=== PATIENT | female | born 1935 | race Caucasian/White ===

== ENCOUNTER 2016-07-06 10:55 | Inpatient (IN) | payer MEDICARE, BC ==
[~2016-07-06] VITALS: Ht 167.6 cm; Wt 86.2 kg
[~2016-07-06 10:55] MED LIST: ACET-868 PO; AMIO200T PO; ASPI81TA2 PO; ATOR20TA PO; CYAN100096 IM; FERR325T28 PO; FURO40SO2 PO; LEVO100T9 PO; METO2.5T2 PO; METO25TA3 PO; POTA20PA4 PO
[2016-07-06] MEDS ORDERED: HYDROCODONE/APAP 5/325MG 1 EACH TABLET ONE (10:58)
[2016-07-06] MEDS ORDERED: ONDANSETRON 4 MG TAB.RAPDIS ONE (10:59)
[2016-07-06] MEDS ORDERED: HYDROCODONE/APAP 5/325MG 1 EACH TABLET PO ONE (11:00)
[2016-07-06] MEDS ORDERED: ONDANSETRON 4 MG TAB.RAPDIS SL ONE (11:00)
--- NOTE | 2016-07-06 11:00 | NUR ---
PT MEDICATED ORDERED.
--- NOTE | 2016-07-06 11:00 | NUR ---
PT BIBA FOR LEFT KNEE PAIN. HX OF KNEE REPLACEMENT. NAD NOTED. DENIES INJURY. SEEN BY MD FOR EVAL. SAFETY AND COMFORT MEASURES PROVIDED. VSS. WILL MONITOR.
--- NOTE | 2016-07-06 11:05 | NUR ---
PT TAKEN TO CT.
--- NOTE | 2016-07-06 12:28 | NUR ---
CALLED JAMIE SPOKE TO WILLA, REQUESTED TRANSPORTATION GOING TO [facility] ETA [id number]
--- NOTE | 2016-07-06 12:38 | NUR ---
SPOKE WITH PROCUREMENT COORDINATOR AT BEDSIDE, PATIENT RESIDES AT THE [facility] [place].
--- NOTE | 2016-07-06 13:11 | NUR ---
REPORT GIVEN TO [facility] FOR TRANSFER BACK TO NURSING FACILITY.
--- NOTE | 2016-07-06 13:14 | NUR ---
Patient discharged to home in stable condition. Written and verbal after care instructions given. Patient verbalizes understanding of instruction.
--- NOTE | 2016-07-06 13:28 | NUR ---
CALLED DR COUCH'S OFFICE LEFT VOICEMAIL TO CALL BACK.
[2016-07-06] MEDS ORDERED: ASPIRIN 325 MG TABLET PO ONE (13:30)
[2016-07-06] MEDS ORDERED: ASPIRIN 325 MG TABLET ONE (13:32)
--- NOTE | 2016-07-06 13:49 | NUR ---
DR CIFUENTES ON THE PHONE WITH DR COUCH
[2016-07-06 13:52] LABS: BASOPHILS # (AUTO) 0.1 /CMM (0.0-0.2); BASOPHILS % (AUTO) 0.9 % (0.0-2.0); EOSINOPHILS # (AUTO) 0.3 /CMM (0.0-0.7); EOSINOPHILS % (AUTO) 3.9 % (0.0-6.0); HEMATOCRIT 39 % (33-45); HEMOGLOBIN 13.5 g/dL (11.5-14.8); LYMPHOCYTES # (AUTO) 1.7 /CMM (0.8-4.8); LYMPHOCYTES % (AUTO) 24.2 % (20.0-44.0); MEAN CORPUSCULAR HEMOGLOBIN 34 PG (26.0-33.0); MEAN CORPUSCULAR HGB CONC 34 g/dl (31.0-36.0); MEAN CORPUSCULAR VOLUME 99 fL (82-100); MONOCYTES # (AUTO) 0.6 /CMM (0.1-1.30); NEUTROPHILS # (AUTO) 4.2 /CMM (1.8-8.9); PLATELET COUNT (AUTO) 105 /CMM (150-450); RDW COEFFICIENT OF VARIATION 12.8 (11.5-15.0); RED BLOOD CELL COUNT(AUTO) 3.98 MIL/uL (4.0-5.2); WHITE BLOOD COUNT (AUTO) 6.9 K/uL (4.3-11.0)
[2016-07-06 14:03] LABS: CALCIUM, SERUM 8.1 mg/dL (8.5-10.1); CREATININE 1.1 mg/dL (0.6-1.3); POTASSIUM 3.5 mmol/L (3.5-5.1)
[2016-07-06 14:06] LABS: INR 1.1 (0.87-1.13); PROTHROMBIN TIME 11.5 SECS (9.5-12.7)
[2016-07-06 14:10] LABS: TROPONIN I 0.022 ng/mL (0.00-0.056)
--- NOTE | 2016-07-06 14:20 | NUR ---
PATIENT ASSIGNED TO TELE 311-2
--- NOTE | 2016-07-06 14:42 | NUR ---
REPORT GIVEN TO KATHIE OLMOS TELE ROOM 311-1
[2016-07-06] MEDS ORDERED: DIVA125C5 PO (14:55)
[2016-07-06] MEDS ORDERED: DOCU-170 PO (14:55)
[2016-07-06] MEDS ORDERED: ALPR0.5T8 PO (14:55)
[2016-07-06] MEDS ORDERED: FURO40TA5 PO (14:55)
[2016-07-06] MEDS ORDERED: HYPR15DR4 EACHEYE (14:55)
[2016-07-06] MEDS ORDERED: CITA40TA22 PO (14:55)
[2016-07-06] MEDS ORDERED: AMIO200T2 PO (14:55)
[2016-07-06] MEDS ORDERED: LISI2.5T2 PO (14:58)
[2016-07-06] MEDS ORDERED: IBUP200C5 PO (15:01)
[2016-07-06] MEDS ORDERED: TRAZ-147 PO (15:01)
[2016-07-06] MEDS ORDERED: ZOLP10TA6 PO (15:01)
[2016-07-06] MEDS ORDERED: GABA-532 PO (15:01)
[2016-07-06] MEDS ORDERED: VIT1CAPS9 PO (15:01)
--- NOTE | 2016-07-06 15:10 | NUR ---
RN NOTES RECEIVED PT FROM ER. TRANSPORTED VIA GURNEY, ACCOMPANIED BUY 1 RN AND 1TECH. CAREGIVER AT BEDSIDE. PT WITH INITIAL VS T- 98.7 BP- 110/85 P- 78 R- 18 O2 SAT- 93% IN ROOM AIR. PT ALERT, ORIENTED. IN NO DISTRESS. PT ADMITTED UNDER TELEMETRY SERVICES, UNDER DR COUCH. ADMITTED FOR LEFT KNEE PAIN AND CHEST PAIN. SKIN AND BODY ASSESSMENT DONE. PT REFUSED PHOTOS TO BE TAKEN; SAID SHE IS IN PAIN. WILL TRY AGAIN LATER. WILL CONTINUE TO MONITOR
[2016-07-06] MEDS ORDERED: ONDANSETRON HCL/PF 4 MG/2 ML VIAL IV PRN (15:30)
[2016-07-06] MEDS ORDERED: ACETAMINOPHEN 325 MG TABLET PO PRN ×2 (15:30→17:30)
[2016-07-06] MEDS ORDERED: FERR-58 PO (15:59)
[2016-07-06 16:00] VITALS: BP 124/59
[2016-07-06] MEDS ORDERED: ZOLPIDEM TARTRATE 5 MG TABLET PO PRN (17:30)
[2016-07-06] MEDS ORDERED: ASPIRIN 81 MG TAB.CHEW PO SCH (17:30)
[2016-07-06] MEDS ORDERED: AMIODARONE HCL 200 MG TABLET PO SCH (17:57)
[2016-07-06] MEDS: NITROGLYCERIN PACKET 1 GM PACKET TOP SCH (18:00)
--- NOTE | 2016-07-06 18:00 | NUR ---
RN NOTES PT IN BED. AWAKE, ALERT, ORIENTED X 3. IN NO APPARENT DISTRESS. TALKING WITH CAREGIVER AND VISITOR. PRN PAIN MEDS ADMINISTERED. REFUSED TO HAVE PHOTOS TAKEN. WILL ENDORSE TO ONCOMING SHIFT
[2016-07-06] MEDS: HYDROCODONE/APAP 5/325MG 1 EACH TABLET PO PRN (18:11)
[2016-07-06] MEDS: ALPRAZOLAM 0.5 MG TABLET PO SCH (18:11)
[2016-07-06] MEDS: POTASSIUM CHLORIDE 20 MEQ POWDER PACKET PO SCH (18:11)
[2016-07-06] MEDS: DOCUSATE SODIUM 100 MG CAPSULE PO SCH (18:11)
[2016-07-06] MEDS ORDERED: IBUPROFEN 200 MG TABLET PO PRN (18:30)
[2016-07-06] MEDS: POLYVINYL ALCOHOL 15 ML BOTTLE OP SCH (18:44)
--- NOTE | 2016-07-06 19:45 | NUR ---
TELE/BALANCING MACHINE OPERATOR; RECEIVED PT. IN BED AWAKE, ALERT AND ORIENTED. VERBALLY RESPONSIVE. BREATHING NON LABORED. DAUGHTER AND PT. OWN OCCUPATIONAL HEALTH PHYSICIAN AT THE BEDSIDE BED ON LOWER POSITION AND LOCKED FOR SAFETY. SIDES RAILS ARE UP FOR SAFETY. CALL LIGHT WITHIN REACH. CONTINUE TO MONITOR. WITH PACEMAKER ON LCW. BOTH LOWER LEGS ARE SWOLLEN AND WITH DISCOLORATION. HL ON RT HAND INTACT. ON TELEMETRY.
[2016-07-06 20:00] VITALS: BP 144/76
[2016-07-06] MEDS: DIVALPROEX SODIUM 125 MG CAP.SPRINK PO SCH (21:08)
[2016-07-06] MEDS: TRAZODONE 50 MG TABLET PO SCH (21:47)
[2016-07-06] MEDS: ATORVASTATIN 10 MG TABLET PO SCH (21:48)
[2016-07-06] MEDS: GABAPENTIN 100 MG CAPSULE PO SCH (21:49)
--- NOTE | 2016-07-06 23:10 | NUR ---
TELE/RESIDENTIAL PROGRAM WORKER; PT CALLED AND ASKED FOR SLEEPING PILL. AMBIEN 10 MG 1 TAB. PO HS PRN GIVEN ORDERED. WILL CONTINUE TO MONITOR.
[2016-07-06] MEDS: ZOLPIDEM TARTRATE 10 MG TABLET PO PRN (23:12)
[2016-07-07] VITALS: BP 108/61
[2016-07-07] MEDS: NITROGLYCERIN PACKET 1 GM PACKET TOP SCH ×4 (00:54→18:00)
--- NOTE | 2016-07-07 02:00 | NUR ---
TELE/BUS DRIVER; SLEEPING AT THIS TIME. BREATHING NON LABORED.
[2016-07-07] MEDS: HYDROCODONE/APAP 5/325MG 1 EACH TABLET PO PRN ×3 (03:25→15:05)
--- NOTE | 2016-07-07 03:25 | NUR ---
TEL/DIRECTOR LEARNING AND DEVELOPMENT; PT. C/O PAIN LT LEG WITH PAIN LEVEL OF 7 / 10/ BP CHECKED 120/ 76, P 85. NORCO 5-325 MG 1 TAB. PO Q4 PRN GIVEN ORDERED.
[2016-07-07 04:00] VITALS: BP 120/76
[2016-07-07] MEDS: DIVALPROEX SODIUM 125 MG CAP.SPRINK PO SCH ×3 (04:54→21:08)
[2016-07-07 06:26] LABS: BASOPHILS % (AUTO) 0.3 % (0.0-2.0); EOSINOPHILS # (AUTO) 0.3 /CMM (0.0-0.7); EOSINOPHILS % (AUTO) 2.9 % (0.0-6.0); HEMATOCRIT 42 % (33-45); LYMPHOCYTES # (AUTO) 2.2 /CMM (0.8-4.8); LYMPHOCYTES % (AUTO) 22.3 % (20.0-44.0); MEAN CORPUSCULAR HEMOGLOBIN 33 PG (26.0-33.0); MEAN CORPUSCULAR HGB CONC 33 g/dl (31.0-36.0); MEAN CORPUSCULAR VOLUME 99 fL (82-100); MONOCYTES # (AUTO) 0.5 /CMM (0.1-1.30); MONOCYTES % (AUTO) 5.3 % (2.0-12.0); NEUTROPHILS % (AUTO) 69.2 % (43.0-81.0); PLATELET COUNT (AUTO) 116 /CMM (150-450); RDW COEFFICIENT OF VARIATION 13.7 (11.5-15.0); RED BLOOD CELL COUNT(AUTO) 4.26 MIL/uL (4.0-5.2); WHITE BLOOD COUNT (AUTO) 10.1 K/uL (4.3-11.0)
--- NOTE | 2016-07-07 06:38 | NUR ---
TELE/PRIME MINISTER; PT ON A-FIB, V PACING 72. SLEPT FAIRLY. BREATHING NON LABORED. PT ALSO HAS REDNESS LT THIGH, RT HIP, BACK,LT HIP LT THIGH.
--- NOTE | 2016-07-07 06:41 | NUR ---
TELE/VAT PACKER; NO PAIN AT THIS TIME. CONTINUE TO MONITOR. CALL LIGHT WITHIN REACH. WILL ENDORSE TO THE DAY SHIFT NURSE.
[2016-07-07 06:49] LABS: CALCIUM, SERUM 8.4 mg/dL (8.5-10.1); CREATININE 1.4 mg/dL (0.6-1.3); POTASSIUM 3.6 mmol/L (3.5-5.1)
--- NOTE | 2016-07-07 07:30 | NUR ---
TERRAZZO TILE MAKER NOTES PT IN BED, AWAKE, ALERT AND ORIENTED, DENIES PAIN, NOT IN DISTRESS, CALL LIGHT WITHIN REACH, KEPT WARM AND COMFORTABLE IN BED, ISOLATION PRECAUTIONS OBSERVED.
[2016-07-07 08:00] VITALS: BP 110/65
[2016-07-07] MEDS: FERROUS SULFATE (325 MG) 325 MG/TAB TABLET PO SCH (08:54)
[2016-07-07] MEDS: ALPRAZOLAM 0.5 MG TABLET PO SCH ×3 (08:54→17:39)
[2016-07-07] MEDS: DOCUSATE SODIUM 100 MG CAPSULE PO SCH ×2 (08:55→17:39)
[2016-07-07] MEDS: PANTOPRAZOLE 40 MG TABLET.DR PO SCH (08:56)
[2016-07-07] MEDS: ASPIRIN 81 MG TAB.CHEW PO SCH (08:56)
[2016-07-07] MEDS: CITALOPRAM HYDROBROMIDE 20 MG TABLET PO SCH (08:56)
[2016-07-07] MEDS: LEVOTHYROXINE SODIUM 100 MCG TABLET PO SCH (08:56)
[2016-07-07] MEDS: POLYVINYL ALCOHOL 15 ML BOTTLE OP SCH (08:57)
[2016-07-07] MEDS: METOPROLOL SUCCINATE 25 MG TAB.SR.24H PO SCH (09:00)
[2016-07-07] MEDS: FUROSEMIDE 40 MG TABLET PO SCH (09:00)
[2016-07-07] MEDS: LISINOPRIL (5MG) 5 MG TABLET PO SCH (09:00)
[2016-07-07] MEDS ORDERED: AMIODARONE HCL 200 MG TABLET PO SCH (09:00)
[2016-07-07] MEDS: MULTIVITAMINS W-MINERALS 1 TAB TABLET PO SCH (09:09)
--- NOTE | 2016-07-07 13:00 | NUR ---
DEVELOPMENT PLANNER NOTES PT IN BED, AWAKE, ALERT AND ORIENTED, PAIN MEDICATION GIVEN FOR PAIN MANAGEMENT, NOT IN DISTRESS, ASSISTED WITH MEALS AND ADL'S, TOLERATING CURRENT DIET WELL, CALL LIGHT WITHIN REACH, ASSISTED WITH TURNING AND REPOSITIONING Q2 HRS.
--- NOTE | 2016-07-07 13:00 | NUR ---
WIRE SPINNER NOTES PT SEEN BY DR. COUCH, PLAN OF CARE DISCUSSED WITH PT, VERBALIZED UNDERSTANDING, INFORMED OF ABNORMAL LAB RESULTS, NO NEW ORDERS GIVEN.
[2016-07-07 16:00] VITALS: BP 114/62
[2016-07-07] MEDS: POTASSIUM CHLORIDE 20 MEQ POWDER PACKET PO SCH (17:47)
[2016-07-07] MEDS: TRAZODONE 50 MG TABLET PO SCH (17:48)
--- NOTE | 2016-07-07 18:22 | NUR ---
RN NOTES PT IN BED, AWAKE, ALERT AND ORIENTED X3, REPORTS L KNEE/L THIGH/L ARM HAS DECREASED FROM 7 TO 4/10, CALL LIGHT WITHIN REACH, KEPT WARM AND COMFORTABLE IN BED, ISOLATION PRECAUTIONS OBSERVED. PT TOLERATING CURRENT DIET. PM CARE PROVIDED. TURNED AND REPOSITIONED Q2HR. WILL ENDORSE TO INFORMATION SERVICES VICE PRESIDENT NURSE.
--- NOTE | 2016-07-07 19:30 | NUR ---
MS/PIERCING SPECIALIST; RECEIVED PT. IN BED AWAKE, ALERT AND ORIENTED. BREATHING NON LABORED. DENIES PAIN AT THIS TIME. HL ON RA INTACT AND PATENT. ON CONTACT ISOLATION OBSERVED. BED ON LOWER POSITION AND LOCKED FOR SAFETY. SIDE RAILS ARE UP FOR SAFETY. CONTINUE TO MONITOR. CALL LIGHT WITHIN REACH.
[2016-07-07 20:11] VITALS: BP 98/50
[2016-07-07] MEDS: GABAPENTIN 100 MG CAPSULE PO SCH (22:18)
[2016-07-07] MEDS: ATORVASTATIN 10 MG TABLET PO SCH (22:18)
[2016-07-07 22:30] VITALS: BP 123/65
--- NOTE | 2016-07-07 22:30 | NUR ---
MS/STORAGE MANAGER; PT WANTS SLEEPING PILL. BP 123/ 65, P 71.
[2016-07-07] MEDS: ZOLPIDEM TARTRATE 10 MG TABLET PO PRN (22:39)
--- NOTE | 2016-07-07 22:40 | NUR ---
MS/CURATOR OF MANUSCRIPTS; AMBIEN 10 MG PO HS PRN GIVEN ORDERED. WET OF URINE PERINEAL CARE DONE AND DIAPER CHANGED.
[2016-07-08 00:23] VITALS: BP 108/71
[2016-07-08] MEDS: DIVALPROEX SODIUM 125 MG CAP.SPRINK PO SCH ×3 (05:08→21:26)
[2016-07-08] MEDS: NITROGLYCERIN PACKET 1 GM PACKET TOP SCH ×4 (06:24→17:06)
--- NOTE | 2016-07-08 06:55 | NUR ---
MS/POLICY ADVISOR; SLEPT AT GOOD INTERVALS. BREATHING NON LABORED. CONTINUE TO MONITOR. WILL ENDORSE TO THE DAY SHIFT NURSE.
[2016-07-08 08:00] VITALS: BP 112/57
--- NOTE | 2016-07-08 08:23 | NUR ---
WOUND CARE CONSULT: PATIENT SEEN AND SKIN ASSESSMENT DONE. PATIENT ALERT, INCONTINENT, JOSE CRUZ 14, PATIENT NEEDS ASSIST IN TURNING AND REPOSITIONING, NURSING STAFF ORDERED NILS ISOFLEX EVERT BED AND WILL BE PLACED WHEN AVAILABLE IN THE UNIT. SEE TODAY'S SKIN ASSESSMENT IN PCS ALONG WITH RECOMMENDATIONS DISCUSSED WITH NURSING STAFF INCLUDING SKIN/MOISTURE PROTECTION WITH Z GUARD AND PRESSURE PREVENTION MEASURES ORDERED. MD IN AGREEMENT WITH PLAN OF CARE. Addendum: 07/08/16 at 0826 by BILLY BELLO WNDNU Amended: Links added.
[2016-07-08] MEDS: ASPIRIN 81 MG TAB.CHEW PO SCH (08:25)
[2016-07-08] MEDS: PANTOPRAZOLE 40 MG TABLET.DR PO SCH (08:25)
[2016-07-08] MEDS: FUROSEMIDE 40 MG TABLET PO SCH (08:25)
[2016-07-08] MEDS: FERROUS SULFATE (325 MG) 325 MG/TAB TABLET PO SCH (08:25)
[2016-07-08] MEDS: MULTIVITAMINS W-MINERALS 1 TAB TABLET PO SCH (08:26)
[2016-07-08] MEDS: METOPROLOL SUCCINATE 25 MG TAB.SR.24H PO SCH (08:26)
[2016-07-08] MEDS: LEVOTHYROXINE SODIUM 100 MCG TABLET PO SCH (08:26)
[2016-07-08] MEDS: ALPRAZOLAM 0.5 MG TABLET PO SCH ×3 (08:27→17:05)
[2016-07-08] MEDS: CITALOPRAM HYDROBROMIDE 20 MG TABLET PO SCH (08:27)
[2016-07-08] MEDS: DOCUSATE SODIUM 100 MG CAPSULE PO SCH ×2 (08:27→17:05)
[2016-07-08] MEDS: LISINOPRIL (5MG) 5 MG TABLET PO SCH (08:27)
[2016-07-08] MEDS: POLYVINYL ALCOHOL 15 ML BOTTLE OP SCH (08:29)
[2016-07-08] MEDS ORDERED: Z GUARD REMEDY 2 OZ OINT TP PRN (08:30)
[2016-07-08 10:00] VITALS: BP 112/57
--- NOTE | 2016-07-08 10:45 | NUR ---
m/s manager internal: notes report given to naresh (chad) for continuity of care.
--- NOTE | 2016-07-08 11:00 | NUR ---
MS RN NOTES RECEIVED PATIENT IN BED RESTING NO SOB OR ACUTE DISTRESS NOTED. CAREGIVER AT BEDSIDE. BED IN LOW LOCKED POSITION. CALL LIGHT WITHIN REACH WILL CONTINUE TO MONITOR.
[2016-07-08] MEDS: Z GUARD REMEDY 2 OZ OINT TP SCH ×2 (11:21→17:11)
[2016-07-08] MEDS: HYDROCODONE/APAP 5/325MG 1 EACH TABLET PO PRN (14:31)
[2016-07-08 16:00] VITALS: BP 94/57
[2016-07-08] MEDS: POTASSIUM CHLORIDE 20 MEQ POWDER PACKET PO SCH (17:05)
[2016-07-08] MEDS: TRAZODONE 50 MG TABLET PO SCH (17:05)
--- NOTE | 2016-07-08 18:10 | NUR ---
MS RN NOTES PATIENT IN BED RESTING NO SOB OR ACUTE DISTRESS NOTED. ALL DUE MEDICATIONS GIVEN. ALL NEEDS MET. IV INTACT PATENT ON RIGHT HAND. WILL ENDORSE TO PM SHIFT.
--- NOTE | 2016-07-08 19:35 | NUR ---
MS/RN OPENING NOTES PT AWAKE, CAREGIVER AND FAMILY AT BEDSIDE. ON ROOM AIR, NO SOB OR DISTRESS NOTED. A/OX3. BREATHING EVEN AND UNLABORED. IV TO RIGHT HAND PATENT AND INTACT. DENIES PAIN. BED IN LOW/LOCKED POSITION, CALL LIGHT IN REACH. BED RAILS UPX2. WILL CONTINUE TO MONITOR
[2016-07-08 20:00] VITALS: BP 112/59
[2016-07-08] MEDS: GABAPENTIN 100 MG CAPSULE PO SCH (21:26)
[2016-07-08] MEDS: ATORVASTATIN 10 MG TABLET PO SCH (21:26)
--- NOTE | 2016-07-08 22:26 | NUR ---
MS/RN NOTES PT COMPLAINING OF ACHING CHEST PAIN 8/10 RADIATING TO LEFT ARM. ALSO COMPLAINING OF SOME SOB. PUT HER ON O2 AND TELE MONITOR, SHOWS A.FIB. WITH HEART RATE AT 74. PAGED DR. COUCH FOR ORDERS.
--- NOTE | 2016-07-08 22:55 | NUR ---
MS/RN NOTES PT NOTES PAIN TO BE 6/10 NOW. IZA CALLED AND GAVE VERBAL ORDERS TO DRAW TROPONIN NOW AND AGAIN IN THE MORNING. IF TROPONIN IS ABNORMAL, CALL DR. CAMPBELL FOR FURTHER ORDERS. WILL CARRY OUT
[2016-07-09] VITALS: BP 115/65
[2016-07-09] MEDS: ZOLPIDEM TARTRATE 10 MG TABLET PO PRN ×2 (00:29→21:20)
[2016-07-09 04:00] VITALS: BP 129/52
[2016-07-09] MEDS: DIVALPROEX SODIUM 125 MG CAP.SPRINK PO SCH ×3 (05:31→21:19)
[2016-07-09] MEDS: NITROGLYCERIN PACKET 1 GM PACKET TOP SCH ×4 (06:27→17:31)
--- NOTE | 2016-07-09 07:06 | NUR ---
MS/RN CLOSING NOTES PT ASLEEP, EASILY AROUSABLE TO NAME. ON 2LPM O2, NO SOB OR ACUTE DISTRESS NOTED. NO COMPLAINTS OF CHEST PAIN AT THIS TIME. BREATHING EVEN AND UNLABORED. ON TELE MONITOR A.FIB HEART RATE AT 76. TROPONIN LAST NIGHT WAS NEGATIVE. TROPONIN THIS AM PENDING. IV TO RIGHT HAND PATENT AND INTACT. TURNED/REPOSITIONED Q2H OFFLOADED EXTREMITIES. WILL ENDORSE TO AM SHIFT DEDRA.
[2016-07-09 08:00] VITALS: BP_SYST 104; BP_SYST 134; BP_DIAS 49; BP_DIAS 71
--- NOTE | 2016-07-09 08:00 | NUR ---
MS RN NOTES RECEIVED PATIENT IN BED RESTING NO SOB OR ACUTE DISTRESS NOTED. BED IN LOW LOCKED POSITION. CALL LIGHT WITHIN REACH WILL CONTINUE TO MONITOR.
[2016-07-09] MEDS: FERROUS SULFATE (325 MG) 325 MG/TAB TABLET PO SCH (08:02)
[2016-07-09] MEDS: MULTIVITAMINS W-MINERALS 1 TAB TABLET PO SCH (08:03)
[2016-07-09] MEDS: DOCUSATE SODIUM 100 MG CAPSULE PO SCH ×2 (08:03→17:30)
[2016-07-09] MEDS: ALPRAZOLAM 0.5 MG TABLET PO SCH ×3 (08:03→17:30)
[2016-07-09] MEDS: LISINOPRIL (5MG) 5 MG TABLET PO SCH (08:03)
[2016-07-09] MEDS: PANTOPRAZOLE 40 MG TABLET.DR PO SCH (08:03)
[2016-07-09] MEDS: LEVOTHYROXINE SODIUM 100 MCG TABLET PO SCH (08:03)
[2016-07-09] MEDS: FUROSEMIDE 40 MG TABLET PO SCH (08:03)
[2016-07-09] MEDS: ASPIRIN 81 MG TAB.CHEW PO SCH (08:04)
[2016-07-09] MEDS: METOPROLOL SUCCINATE 25 MG TAB.SR.24H PO SCH (08:04)
[2016-07-09] MEDS: CITALOPRAM HYDROBROMIDE 20 MG TABLET PO SCH (08:04)
[2016-07-09] MEDS: POLYVINYL ALCOHOL 15 ML BOTTLE OP SCH (08:05)
[2016-07-09] MEDS: Z GUARD REMEDY 2 OZ OINT TP SCH ×2 (08:05→17:31)
--- NOTE | 2016-07-09 13:00 | NUR ---
MS RN NOTES PATIENT SEEN AND EVALUATED BY DR. COUCH ORDERS NOTED AND CARRIED OUT.
[2016-07-09] MEDS: HYDROCODONE/APAP 5/325MG 1 EACH TABLET PO PRN (15:58)
[2016-07-09 16:00] VITALS: BP 124/71
[2016-07-09] MEDS: POTASSIUM CHLORIDE 20 MEQ POWDER PACKET PO SCH (17:30)
[2016-07-09] MEDS: TRAZODONE 50 MG TABLET PO SCH (17:30)
--- NOTE | 2016-07-09 18:53 | NUR ---
MS RN NOTES PATIENT IN BED RESTING NO SOB OR ACUTE DISTRESS NOTED. ALL DUE MEDICATIONS GIVEN. ALL NEEDS MET. WILL ENDORSE TO PM SHIFT DEDRA.
--- NOTE | 2016-07-09 19:15 | NUR ---
RN NOTES RECEIVED PT AWAKE , HOB ELEVATED, NO SOB, NOT IN DISTRESS WITH O2 INHALATION AT 2LPM VIA NC AND TOLERATED WELL. PT ALERT AND ORIENTED X3, DENIES ANY PAIN AND DISCOMFORT AT THIS TIME. IV ACCESS ON RIGHT HAND PATENT AND INTACT. BOTH LOWER LEG ELEVATED. KEPT BED IN THE LOWEST POSITION, LOCKED, SIDE RAILS X2 UP WITH CALL LIGHT WITHIN REACH. KEPT COMFORTABLE AND ATTENDED. WILL CONTINUE TO MONITOR PT.
[2016-07-09 20:00] VITALS: BP 114/63
[2016-07-09] MEDS: GABAPENTIN 100 MG CAPSULE PO SCH (21:20)
[2016-07-09] MEDS: ATORVASTATIN 10 MG TABLET PO SCH (21:20)
--- NOTE | 2016-07-09 21:20 | NUR ---
RN NOTES PT WANTED TO SLEEP AND HAVING DIFFICULTY SLEEPING AND REQUESTING FOR SLEEPING PILL. AMBIEN 10 MG TAB GIVEN PO AND TOLERATED WELL. WILL CONTINUE TO MONITOR PT.
[2016-07-09 22:00] VITALS: BP 114/63
[2016-07-10] MEDS: DIVALPROEX SODIUM 125 MG CAP.SPRINK PO SCH ×2 (05:20→12:59)
[2016-07-10] MEDS: NITROGLYCERIN PACKET 1 GM PACKET TOP SCH ×3 (05:21→12:59)
--- NOTE | 2016-07-10 06:52 | NUR ---
RN NOTES PT ASLEEP IN BED, NO SOB, NOT IN DISTRESS , TOLERATING O2 INHALATION VIA NC AT 2LPM. VITAL SIGNS STABLE. NO COMPLAIN OF CHEST PAIN, NO EPISODE OF NAUSEA AND VOMITING. ALL DUE MEDS GIVEN. SKIN CARE DONE. TURNED AND REPOSITION Q2H SCHEDULED. NO SIGNIFICANT CHANGE IN CONDITION NOTED.WILL ENDORSE TO MORNING RN FOR CONTINUITY OF CARE.
--- NOTE | 2016-07-10 07:29 | NUR ---
RN OPEN NOTES RECEIVED REPORT FROM INDUSTRIAL YARD BRAKE COUPLER NURSE. PATIENT IS IN BED, EYE CLOSED. EASILY AROUSED TO CALLING HER NAME. NO SIGN AND SYMPTOMS OF DISTRESS. IV SITE IS INTACT AND POTENT. WILL CONTINUE TO ASSESS AND MONITOR PATIENT THROUGH OUT MY SHIFT.
[2016-07-10 08:18] VITALS: BP 111/47
[2016-07-10] MEDS: DOCUSATE SODIUM 100 MG CAPSULE PO SCH (08:21)
[2016-07-10] MEDS: CITALOPRAM HYDROBROMIDE 20 MG TABLET PO SCH (08:21)
[2016-07-10] MEDS: MULTIVITAMINS W-MINERALS 1 TAB TABLET PO SCH (08:21)
[2016-07-10] MEDS: LEVOTHYROXINE SODIUM 100 MCG TABLET PO SCH (08:22)
[2016-07-10] MEDS: ALPRAZOLAM 0.5 MG TABLET PO SCH ×2 (08:23→12:59)
[2016-07-10] MEDS: PANTOPRAZOLE 40 MG TABLET.DR PO SCH (08:23)
[2016-07-10] MEDS: ASPIRIN 81 MG TAB.CHEW PO SCH (08:23)
[2016-07-10] MEDS: FERROUS SULFATE (325 MG) 325 MG/TAB TABLET PO SCH (08:23)
[2016-07-10] MEDS: FUROSEMIDE 40 MG TABLET PO SCH (08:24)
[2016-07-10 08:26] VITALS: BP 126/80
[2016-07-10] MEDS: METOPROLOL SUCCINATE 25 MG TAB.SR.24H PO SCH (08:26)
[2016-07-10] MEDS: LISINOPRIL (5MG) 5 MG TABLET PO SCH (08:26)
[2016-07-10] MEDS: Z GUARD REMEDY 2 OZ OINT TP SCH (08:27)
[2016-07-10] MEDS: POLYVINYL ALCOHOL 15 ML BOTTLE OP SCH (08:32)
[2016-07-10 12:59] VITALS: BP 120/66
[2016-07-10] MEDS: HYDROCODONE/APAP 5/325MG 1 EACH TABLET PO PRN (12:59)
--- NOTE | 2016-07-10 16:44 | NUR ---
STAPLE CUTTER NOTES DISCHARGED ORDER RECEIVED AND CARRY OUT. PATIENT IS STABLE. VITAL SIGNS ARE STABLE. DENIED PAIN. NO SIGNS AND SYMPTOMS OF DISTRESS. PATIENT'S DAUGHTER AT BEDSIDE RECEIVED ALL DISCHARGE PAPER WORKS. AMBULANCE WITH 2 finish photographer TRANSPORTED PATIENT TO [facility]. REPORT WAS GIVEN TO CONNIE. IV SITE REMOVED. ID BAND REMOVED.
== END 2016-07-10 14:45 | DRG 205 ==
LOC: ER 10:58 → TELE 14:30 → MED 07-07 15:04
PROVIDERS: ADMIT Legal Medicine; ATTEND Legal Medicine
DX: M94.0 Chondrocostal junction syndrome [Tietze] (principal); N17.0 Acute kidney failure with tubular necrosis; I48.92 Unspecified atrial flutter; I50.32 Chronic diastolic (congestive) heart failure; I13.0 Hypertensive heart and chronic kidney disease with heart failure and stage 1 through stage 4 chronic kidney disease, or unspecified chronic kidney disease; E03.9 Hypothyroidism, unspecified; E78.5 Hyperlipidemia, unspecified; Z96.652 Presence of left artificial knee joint; N18.9 Chronic kidney disease, unspecified; F31.9 Bipolar disorder, unspecified; I48.2 Chronic atrial fibrillation; Z87.891 Personal history of nicotine dependence; Z95.0 Presence of cardiac pacemaker; I87.2 Venous insufficiency (chronic) (peripheral); M20.41 Other hammer toe(s) (acquired), right foot; M20.42 Other hammer toe(s) (acquired), left foot
CPT/HCPCS: 36415; 71010-TC; 73700-TC; 80048-TC; 80061-TC; 84484-TC; 85025-TC; 85730-TC; 87081-TC; 93307-TC; 97001-TC; A4606; Q0162; Z7610

== ENCOUNTER 2016-09-14 10:11 | Outpatient (CLI) | payer MEDICARE, BC ==
[~2016-09-14 10:11] MED LIST changes: +ALPR0.5T8 PO; +CITA40TA22 PO; +DIVA125C5 PO; +DOCU-170 PO; +FERR-58 PO; -FERR325T28 PO; -FURO40SO2 PO; +FURO40TA5 PO; +GABA-532 PO; +HYPR15DR4 EACHEYE; +IBUP200C5 PO; +LISI2.5T2 PO; +TRAZ-147 PO; +VIT1CAPS9 PO; +ZOLP10TA6 PO
== END 2016-09-14 23:59 | disposition home or self-care (01) ==
LOC: WOU 10:11
PROVIDERS: ATTEND Podiatrist Foot & Ankle Surgery
DX: I87.2 Venous insufficiency (chronic) (peripheral) (principal); L97.221 Non-pressure chronic ulcer of left calf limited to breakdown of skin; I73.9 Peripheral vascular disease, unspecified; Z87.891 Personal history of nicotine dependence; E66.3 Overweight; Z68.28 Body mass index [BMI] 28.0-28.9, adult; Z86.73 Personal history of transient ischemic attack (TIA), and cerebral infarction without residual deficits; Z86.718 Personal history of other venous thrombosis and embolism; G62.9 Polyneuropathy, unspecified; J44.9 Chronic obstructive pulmonary disease, unspecified; I69.354 Hemiplegia and hemiparesis following cerebral infarction affecting left non-dominant side; I49.9 Cardiac arrhythmia, unspecified; Z95.810 Presence of automatic (implantable) cardiac defibrillator
CPT/HCPCS: 11042; 93923; A6402

== ENCOUNTER 2016-09-21 10:20 | Outpatient (CLI) | payer MEDICARE, BC | END 2016-09-21 23:59 | disposition home health service (06) | LOC: WOU 10:20 | PROVIDERS: ATTEND Podiatrist Foot & Ankle Surgery | DX: I83.012 Varicose veins of right lower extremity with ulcer of calf (principal); L97.211 Non-pressure chronic ulcer of right calf limited to breakdown of skin; M21.549 Acquired clubfoot, unspecified foot; I69.354 Hemiplegia and hemiparesis following cerebral infarction affecting left non-dominant side; Z99.3 Dependence on wheelchair; R60.0 Localized edema; Z86.718 Personal history of other venous thrombosis and embolism | CPT/HCPCS: 11042; A6209; A6402 ==

== ENCOUNTER 2016-09-28 10:12 | Outpatient (CLI) | payer MEDICARE, BC | END 2016-09-28 23:59 | disposition home health service (06) | LOC: WOU 10:12 | PROVIDERS: ATTEND Podiatrist Foot & Ankle Surgery | DX: I87.2 Venous insufficiency (chronic) (peripheral) (principal); L97.211 Non-pressure chronic ulcer of right calf limited to breakdown of skin; Z99.3 Dependence on wheelchair; R60.0 Localized edema; M21.541 Acquired clubfoot, right foot; L90.9 Atrophic disorder of skin, unspecified | CPT/HCPCS: 11042; A6402 ==

== ENCOUNTER 2016-10-05 10:14 | Outpatient (CLI) | payer MEDICARE, BC | END 2016-10-05 23:59 | disposition home health service (06) | LOC: WOU 10:14 | PROVIDERS: ATTEND Podiatrist Foot & Ankle Surgery | DX: I87.2 Venous insufficiency (chronic) (peripheral) (principal); L97.221 Non-pressure chronic ulcer of left calf limited to breakdown of skin; Z99.3 Dependence on wheelchair; R60.0 Localized edema; M21.541 Acquired clubfoot, right foot; L90.9 Atrophic disorder of skin, unspecified; I69.354 Hemiplegia and hemiparesis following cerebral infarction affecting left non-dominant side; E07.9 Disorder of thyroid, unspecified; R17 Unspecified jaundice; E66.9 Obesity, unspecified; Z68.28 Body mass index [BMI] 28.0-28.9, adult; D64.9 Anemia, unspecified; I25.10 Atherosclerotic heart disease of native coronary artery without angina pectoris; Z95.810 Presence of automatic (implantable) cardiac defibrillator; Z79.82 Long term (current) use of aspirin | CPT/HCPCS: 11042; A6402; Z7610 ==

== ENCOUNTER 2016-10-12 10:10 | Outpatient (CLI) | payer MEDICARE, BC | END 2016-10-12 23:59 | disposition home health service (06) | LOC: WOU 10:10 | PROVIDERS: ATTEND Podiatrist Foot & Ankle Surgery | DX: I87.2 Venous insufficiency (chronic) (peripheral) (principal); L97.211 Non-pressure chronic ulcer of right calf limited to breakdown of skin; R60.0 Localized edema; M21.542 Acquired clubfoot, left foot; M21.541 Acquired clubfoot, right foot; Z99.3 Dependence on wheelchair | CPT/HCPCS: 11042; A6402 ==

== ENCOUNTER 2016-10-19 09:10 | Outpatient (CLI) | payer MEDICARE, BC | END 2016-10-19 23:59 | disposition home health service (06) | LOC: WOU 09:10 | PROVIDERS: ATTEND Podiatrist Foot & Ankle Surgery | DX: I83.022 Varicose veins of left lower extremity with ulcer of calf (principal); L97.221 Non-pressure chronic ulcer of left calf limited to breakdown of skin; R60.0 Localized edema; M21.541 Acquired clubfoot, right foot; Z86.73 Personal history of transient ischemic attack (TIA), and cerebral infarction without residual deficits; Z87.891 Personal history of nicotine dependence; Z86.718 Personal history of other venous thrombosis and embolism; Z79.82 Long term (current) use of aspirin; Z79.899 Other long term (current) drug therapy; J44.9 Chronic obstructive pulmonary disease, unspecified; E66.3 Overweight; Z68.28 Body mass index [BMI] 28.0-28.9, adult | CPT/HCPCS: 11042; A6402 ==

== ENCOUNTER 2016-10-23 08:39 | Emergency (ER) | payer MEDICARE, BC ==
[~2016-10-23] VITALS: Ht 167.6 cm; Wt 86.2 kg
--- NOTE | 2016-10-23 08:59 | NUR ---
CARLIE FROM HOME DT SP FALL-- NO KO. APPEARS IN NO APPARENT DISTRESS, RESPIRATION EVEN AND UNALBORED,. REPORT HITTING BACK OF HEAD, WITH PAIN SCALE OF 6/10. SKIN IS WARM TO TOUCH AND NON DIAPHORETIC, PATIENT IS AFEBRILE. VSS
[2016-10-23] MEDS ORDERED: ACETAMINOPHEN 325 MG TABLET PO ONE (09:00)
[2016-10-23] MEDS ORDERED: ACETAMINOPHEN 325 MG TABLET ONE (09:03)
[2016-10-23] MEDS ORDERED: HYDROCODONE/APAP 5/325MG 1 EACH TABLET ONE (10:44)
[2016-10-23] MEDS ORDERED: HYDROCODONE/APAP 5/325MG 1 EACH TABLET PO ONE (11:00)
--- NOTE | 2016-10-23 12:40 | NUR ---
CALLED [facility] FOR BLS TRANSPORT ETA 45 - 1 HOUR
--- NOTE | 2016-10-23 13:30 | NUR ---
REPORT GIVEN TO [facility] STAFF FOR TRANSPORT BACK TO SNF.
--- NOTE | 2016-10-23 13:35 | NUR ---
Patient discharged to home in stable condition. Written and verbal after care instructions given. Patient verbalizes understanding of instruction.
[2016-10-23 13:47] VITALS: BP 129/88
== END 2016-10-23 13:47 ==
LOC: ER 08:41
DX: S46.912A Strain of unspecified muscle, fascia and tendon at shoulder and upper arm level, left arm, initial encounter (principal); S00.93XA Contusion of unspecified part of head, initial encounter; S30.0XXA Contusion of lower back and pelvis, initial encounter; E03.9 Hypothyroidism, unspecified; E78.5 Hyperlipidemia, unspecified; G47.00 Insomnia, unspecified; I10 Essential (primary) hypertension; M19.012 Primary osteoarthritis, left shoulder; Z79.82 Long term (current) use of aspirin; Z96.652 Presence of left artificial knee joint; W01.198A Fall on same level from slipping, tripping and stumbling with subsequent striking against other object, initial encounter; Y93.89 Activity, other specified; Y92.89 Other specified places as the place of occurrence of the external cause; Y99.9 Unspecified external cause status
CPT/HCPCS: 70450; 73030; 73502; 99284; A4606; Z7610

== ENCOUNTER 2016-10-26 10:12 | Outpatient (CLI) | payer MEDICARE, BC | END 2016-10-26 23:59 | disposition home or self-care (01) | LOC: WOU 10:12 | PROVIDERS: ATTEND Podiatrist Foot & Ankle Surgery | DX: L97.221 Non-pressure chronic ulcer of left calf limited to breakdown of skin (principal); I87.2 Venous insufficiency (chronic) (peripheral); M21.542 Acquired clubfoot, left foot; M21.541 Acquired clubfoot, right foot | CPT/HCPCS: 11042; A6402 ==

== ENCOUNTER 2016-11-02 10:10 | Outpatient (CLI) | payer MEDICARE, BC | END 2016-11-02 23:59 | disposition home health service (06) | LOC: WOU 10:10 | PROVIDERS: ATTEND Podiatrist Foot & Ankle Surgery | DX: I87.2 Venous insufficiency (chronic) (peripheral) (principal); L97.211 Non-pressure chronic ulcer of right calf limited to breakdown of skin; Z99.3 Dependence on wheelchair; Q66.89 Other specified congenital deformities of feet; R60.0 Localized edema | CPT/HCPCS: 11042; A6402 ==

== ENCOUNTER 2016-11-09 10:05 | Outpatient (CLI) | payer MEDICARE, BC | END 2016-11-09 23:59 | disposition home health service (06) | LOC: WOU 10:05 | PROVIDERS: ATTEND Podiatrist Foot & Ankle Surgery | DX: I87.2 Venous insufficiency (chronic) (peripheral) (principal); L97.211 Non-pressure chronic ulcer of right calf limited to breakdown of skin; R60.0 Localized edema; M21.542 Acquired clubfoot, left foot; M21.541 Acquired clubfoot, right foot; Z99.3 Dependence on wheelchair | CPT/HCPCS: 15271; A6402; Q4110 ==

== ENCOUNTER 2016-11-16 10:13 | Outpatient (CLI) | payer MEDICARE, BC | END 2016-11-16 23:59 | disposition home health service (06) | LOC: WOU 10:13 | PROVIDERS: ATTEND Podiatrist Foot & Ankle Surgery | DX: I87.2 Venous insufficiency (chronic) (peripheral) (principal); L97.211 Non-pressure chronic ulcer of right calf limited to breakdown of skin; M21.542 Acquired clubfoot, left foot; M21.541 Acquired clubfoot, right foot; Z99.3 Dependence on wheelchair; R60.0 Localized edema | CPT/HCPCS: A6402; G0463 ==

== ENCOUNTER 2016-11-23 10:15 | Outpatient (CLI) | payer MEDICARE, BC | END 2016-11-23 23:59 | disposition home health service (06) | LOC: WOU 10:15 | PROVIDERS: ATTEND Podiatrist Foot & Ankle Surgery | DX: I87.9 Disorder of vein, unspecified (principal); L97.219 Non-pressure chronic ulcer of right calf with unspecified severity; R60.0 Localized edema; Z99.3 Dependence on wheelchair; M21.542 Acquired clubfoot, left foot; M21.541 Acquired clubfoot, right foot | CPT/HCPCS: A6402; G0463 ==

== ENCOUNTER 2016-11-27 17:31 | Emergency (ER) | payer MEDICARE, BC ==
[~2016-11-27] VITALS: Ht 177.8 cm; Wt 98.9 kg
[2016-11-27 18:12] VITALS: BP 135/57
--- NOTE | 2016-11-27 18:12 | NUR ---
PT BIBRA FROM [facility], PRESENTS TO ER W/ FACIAL SWELLING, BILAT FOREARM SKIN TEAR. AND BILAT KNEE BRUISING. PER REPORT MECHANICAL TRIP AND FALL AFTER USING A BATHROOM AND TRANSFERING FROM HER WHEELCHAIR. PT DENIES KO. PLACED ON MONITOR. STABLE VITALS AT THIS TIME. AWAITING MD KELLY.
--- NOTE | 2016-11-27 18:21 | NUR ---
EDUIN RAE AT BEDSIDE FOR EVAL.
[2016-11-27] MEDS ORDERED: IV NS 0.9% 1,000 ML BAG IV ONE (18:30)
[2016-11-27] MEDS ORDERED: MORPHINE SULFATE INJ 2 MG/ML DISP.SYRIN IV ONE ×2 (18:30→21:00)
--- NOTE | 2016-11-27 18:30 | NUR ---
IV LINE STARTED BLOOD DRAWN AND SENT TO LAB.
[2016-11-27] MEDS ORDERED: MORPHINE SULFATE INJ 2 MG/ML DISP.SYRIN ONE (18:36)
[2016-11-27 18:39] LABS: BASOPHILS % (AUTO) 0.6 % (0.0-2.0); EOSINOPHILS # (AUTO) 0.2 /CMM (0.0-0.7); EOSINOPHILS % (AUTO) 2.8 % (0.0-6.0); HEMATOCRIT 37 % (33-45); HEMOGLOBIN 11.8 g/dL (11.5-14.8); LYMPHOCYTES # (AUTO) 1.2 /CMM (0.8-4.8); LYMPHOCYTES % (AUTO) 18.7 % (20.0-44.0); MEAN CORPUSCULAR HEMOGLOBIN 33 PG (26.0-33.0); MEAN CORPUSCULAR HGB CONC 32 g/dl (31.0-36.0); MEAN CORPUSCULAR VOLUME 103 fL (82-100); MONOCYTES # (AUTO) 0.6 /CMM (0.1-1.30); MONOCYTES % (AUTO) 9.8 % (2.0-12.0); NEUTROPHILS # (AUTO) 4.5 /CMM (1.8-8.9); NEUTROPHILS % (AUTO) 68.1 % (43.0-81.0); PLATELET COUNT (AUTO) 141 /CMM (150-450); RDW COEFFICIENT OF VARIATION 13.6 (11.5-15.0); RED BLOOD CELL COUNT(AUTO) 3.55 MIL/uL (4.0-5.2); WHITE BLOOD COUNT (AUTO) 6.5 K/uL (4.3-11.0)
[2016-11-27 18:49] LABS: CALCIUM, SERUM 8.4 mg/dL (8.5-10.1); CARBON DIOXIDE 30 mmol/L (21-32); CHLORIDE 102 mmol/L (98-107); CREATININE 1.2 mg/dL (0.6-1.3); GLUCOSE 86 mg/dL (74-106); POTASSIUM 3.8 mmol/L (3.5-5.1); SODIUM SERUM 140 mmol/L (136-145); UREA NITROGEN, BLOOD 16 mg/dL (7-18)
[2016-11-27 18:54] LABS: INR 1.15 (0.87-1.13); PROTHROMBIN TIME 12.1 SECS (9.5-12.7)
--- NOTE | 2016-11-27 19:15 | NUR ---
REPORT GIVEN TO YOEL OLMOS FOR DEDRA.
--- NOTE | 2016-11-27 19:45 | NUR ---
PT TRANSPORTED TO CT VIA GURNEY BY RADIOLOGY TEAM
[2016-11-27] MEDS ORDERED: MORPHINE SULFATE INJ 4 MG/ML DISP.SYRIN ONE (20:35)
[2016-11-27] MEDS ORDERED: CEFAZOLIN 1 GM in IV D5W 50 ML IV ONE (22:30)
[2016-11-27] MEDS ORDERED: ONDANSETRON HCL/PF - ER 4 MG/2 ML VIAL IV ONE (22:30)
[2016-11-27] MEDS ORDERED: HYDROMORPHONE 1 MG/1 ML DISP.SYRIN IV ONE (22:30)
[2016-11-27] MEDS ORDERED: HYDROMORPHONE 1 MG/1 ML DISP.SYRIN ONE (22:33)
[2016-11-27] MEDS ORDERED: ONDANSETRON HCL/PF 4 MG/2 ML VIAL ONE (22:34)
[2016-11-27] MEDS ORDERED: CEFAZOLIN 1 GM ONE (22:34)
--- NOTE | 2016-11-27 22:49 | NUR ---
[facility] CALLED, HIGHER LEVEL OF CARE PRESENTED.
--- NOTE | 2016-11-27 22:50 | NUR ---
[facility] CALLED. NO OPTHAMOLOGY
--- NOTE | 2016-11-27 22:55 | NUR ---
[facility] CALLED FOR HIGHER LEVEL OF CARE. NO OPTHAMOLOGY
--- NOTE | 2016-11-27 22:57 | NUR ---
[facility] TRANSFER CALLED FOR HIGHER LEVEL OF CARE.
[2016-11-27] MEDS ORDERED: TDAP [DIPH/PERTUSSIS/TET] 0.5 ML VIAL IM ONE (23:00)
--- NOTE | 2016-11-27 23:08 | NUR ---
MEDICATED PT ORDERED
--- NOTE | 2016-11-27 23:10 | NUR ---
PT RESTING IN ER BED, NAD NOTED, SKIN WARM AND DRY. 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 PT MOVING ALL EXTREMITIES FREELY, WILL CONTINUE TO MONITOR.
--- NOTE | 2016-11-27 23:40 | NUR ---
CALL FROM [facility]. UNABLE TO ACCEPT PT.
--- NOTE | 2016-11-27 23:43 | NUR ---
[facility], NO OPTHALMOLOGY AVAILABLE.
--- NOTE | 2016-11-28 00:01 | NUR ---
MONIKA MARINELLI [facility] CALLED FOR HIGHER LEVEL OF CARE.
--- NOTE | 2016-11-28 00:29 | NUR ---
CALL FROM DIANNE GREGORIO [facility] BED 43[address] BED 1 . NUMBER FOR REPORT [phone], OPTION 1 [phone]
--- NOTE | 2016-11-28 00:30 | NUR ---
ACCEPTED BY DR KIRKPATRICK- PLASTICS, DR DAIGLE- HOSPITALIST.
--- NOTE | 2016-11-28 00:45 | NUR ---
MEDICATED PT ORDERED
[2016-11-28] MEDS ORDERED: HALOPERIDOL LACTATE INJ 5 MG/ML VIAL ONE (00:50)
[2016-11-28] MEDS ORDERED: HALOPERIDOL LACTATE INJ 5 MG/ML VIAL IV ONE (01:00)
--- NOTE | 2016-11-28 01:01 | NUR ---
CELINE OLMOS TOOK REPORT FOR DEDRA
--- NOTE | 2016-11-28 01:12 | NUR ---
REPORT GIVEN TO EMT FOR TRANSPORT
== END 2016-11-28 01:32 | disposition home or self-care (01) ==
LOC: ER 17:32
DX: S01.112A Laceration without foreign body of left eyelid and periocular area, initial encounter (principal); S80.02XA Contusion of left knee, initial encounter; S80.01XA Contusion of right knee, initial encounter; M54.5 Low back pain; M25.511 Pain in right shoulder; E03.9 Hypothyroidism, unspecified; E78.5 Hyperlipidemia, unspecified; I10 Essential (primary) hypertension; W18.11XA Fall from or off toilet without subsequent striking against object, initial encounter; Y93.89 Activity, other specified; Y92.89 Other specified places as the place of occurrence of the external cause; Y99.8 Other external cause status
CPT/HCPCS: 36415; 70450; 70486; 72100; 72125; 73030; 73560 ×2; 80048; 85025; 85730; 90471; 93005; 96361; 96365; 96375; 96376; 99285; A4606; A6402; J1630; J2270 ×2; J7030 ×2; J7060; L0172; Z7610